=== PATIENT | female | born 1970 | race Two or more races ===

== ENCOUNTER 2023-02-10 05:29 | Day surgery (SDC) | payer OTHER ==
[2023-02-09 12:39] VITALS: BMI 26.9
[~2023-02-10 05:29] MED LIST: ceFAZolin SODIUM 1 GM VIAL IVPB ONE
[2023-02-10] MEDS ORDERED: IBUPROFEN 400 MG TABLET (FP) PO PRN (12:45)
[2023-02-10] MEDS ORDERED: ACETAMINOPHEN 325 MG TABLET (FP) PO PRN (12:45)
[2023-02-10] MEDS ORDERED: LIDOCAINE HCL 2% 100 MG/5 ML DISP.SYRIN ONE (13:08)
[2023-02-10] MEDS ORDERED: MIDAZOLAM HCL 2 MG/2 ML SINGLE DOSE VIAL ONE (13:08)
[2023-02-10] MEDS ORDERED: PROPOFOL 20 ML ONE (13:08)
[2023-02-10] MEDS ORDERED: ONDANSETRON 4 MG/2 ML VIAL ONE (13:28)
[2023-02-10] MEDS ORDERED: DEXAMETHASONE SOD PHOSPHATE 4 MG/1 ML VIAL ONE (13:28)
[2023-02-10] MEDS ORDERED: KETOROLAC TROMETHAMINE 30 MG/1 ML VIAL ONE (13:35)
[2023-02-10] MEDS ORDERED: ONDANSETRON 4 MG/2 ML VIAL IVPUSH PRN (14:11)
[2023-02-10] MEDS ORDERED: oxyCODONE HCL 5 MG TABLET PO PRN (14:11)
[2023-02-10] MEDS ORDERED: ACETAMINOPHEN 1000 MG/100 ML BAG IVPB ONE (14:12)
[2023-02-10] MEDS ORDERED: LACTATED RINGERS SOLUTION 1,000 ML IV SCH (14:15)
[2023-02-10 16:05] VITALS: RESP 18
[2023-02-10 18:00] VITALS: BP 144/61; PULSE 67; TEMP 98
== END 2023-02-10 16:35 | disposition home or self-care (01) ==
LOC: JASU-SURG 05:29
PROVIDERS: ATTEND Obstetrics & Gynecology
PROC: 0UB98ZZ Excision of Uterus, Via Natural or Artificial Opening Endoscopic (ICD-10-PCS; principal; 2023-02-10 13:00)
DX: N95.0 Postmenopausal bleeding (principal); N84.0 Polyp of corpus uteri
CPT/HCPCS: 81025; 86850; 86900; 86901; 88305-TC; 94760